=== PATIENT | male | born 1980 | race American Indian/Alaskan Native ===

== ENCOUNTER 2018-11-05 08:40 | Emergency (ER) | payer SELFPAY ==
[2018-11-05 08:44] VITALS: BP 162/98
[2018-11-05] MEDS ORDERED: PROVENTIL IH ONE (09:32)
[2018-11-05] MEDS ORDERED: DELTASONE PO ONE (09:32)
[2018-11-05] MEDS ORDERED: ATROVENT IH ONE (09:32)
[2018-11-05] MEDS ORDERED: TESSALON PERLES PO ONE (09:33)
[2018-11-05] MEDS ORDERED: ZITHROMAX PO ONE (09:33)
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
--- NOTE | 2018-11-05 10:52 | XRay Report ---
CHEST 2 VIEWS INDICATION: cough. COMPARISON: None. FINDINGS: Support devices: None. Heart: Within normal limits. Pulmonary vasculature: Normal. Lungs/pleura: Patchy opacities in the left lower lobe on both views. The rest of the lungs are clear. No pleural effusion. No pneumothorax. Additional findings: Lower thoracic dextroscoliosis. IMPRESSION: 1. Left lower lobe patchy pneumonia.. Signer Name: Timo Lwa MD Signed: 11/05/2018 10:48 AM Workstation Name: [id number]
== END 2018-11-05 11:25 | disposition home or self-care (01) ==
LOC: ED 08:40
DX: J18.1 Lobar pneumonia, unspecified organism (principal); F12.10 Cannabis abuse, uncomplicated; Z98.890 Other specified postprocedural states
CPT/HCPCS: 71046; 94644; 99283; J7512

== ENCOUNTER 2020-06-30 23:34 | Emergency (ER) | payer SELFPAY ==
[2020-07-01] MEDS ORDERED: LIDOCAINE (2%) 20 MG/1 ML VIAL 20 ML MDV INFILTRATI ONE (00:27)
[2020-07-01 00:39] LABS: Basophils # (Auto) 0.1 K/mm3 (0.0-0.1); Basophils % (Auto) 0.4 % (0.0-1.8); Eosinophils % (Auto) 0.1 % (0.0-4.3); Hematocrit 38.6 % (35.5-45.6); Hemoglobin 12.5 gm/dl (11.8-15.2); Lymphocytes # (Auto) 0.7 K/mm3 (1.2-5.4); Lymphocytes % (Auto) 4.3 % (13.4-35.0); Mean Corpuscular HGB Conc 32 % (32-34); Mean Corpuscular Volume 93 fl (84-94); Monocytes # (Auto) 1.2 K/mm3 (0.0-0.8); Monocytes % (Auto) 6.6 % (0.0-7.3); Platelet Count 248 K/mm3 (140-440); Red Blood Count 4.13 M/mm3 (3.65-5.03)
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
[2020-07-01] MEDS ORDERED: TETANUS,DIPH,PERTUSS(ACELL) VACCINE 0.5 ML SYRINGE IM ONE (00:41)
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
--- NOTE | 2020-07-01 00:51 | Cat Scan Report ---
CT facial bones wo con INDICATION: facial trauma. TECHNIQUE: All CT scans at this location are performed using the following dose modulation technique: Automated exposure control. CONTRAST: None. COMPARISON: None available. FINDINGS: Fluid is seen at the left frontal sinus, anterior ethmoids and maxillary sinuses bilaterall y. Nondisplaced fracture inferior left frontal sinus. Mildly depressed left nasal fracture. Comminuted f ractures involve the anterior simpson of the maxillary sinuses bilaterally and the posterior lateral wa ll of the left maxillary sinus. There are also fractures at the nasal septum and multiple sites at th e maxilla/hard palate. The floors of the orbits, pterygoid plates and zygomatic arch are intact. Multifocal dental disease is present. IMPRESSION: 1. Multiple facial fractures. 2. Multifocal sinus opacification. Signer Name: Sai Woodson MD Signed: 07/01/2020 12:46 AM Workstation Name: [id number]
[2020-07-01 01:03] LABS: Alanine Aminotransferase 22 units/L (7-56); Albumin 4.7 g/dL (3.9-5); BUN/Creatinine Ratio 15; Blood Urea Nitrogen 17 mg/dL (9-20); Calcium 9.1 mg/dL (8.4-10.2); Hemolysis Index 9
[2020-07-01] MEDS ORDERED: AMOXICILLIN 500 MG CAP PO ONE (01:06)
[2020-07-01 02:47] VITALS: BP 126/72
== END 2020-07-01 02:25 ==
LOC: ED 23:34
DX: S02.92XA Unspecified fracture of facial bones, initial encounter for closed fracture (principal); S01.81XA Laceration without foreign body of other part of head, initial encounter; F12.90 Cannabis use, unspecified, uncomplicated; Z79.899 Other long term (current) drug therapy; Z98.890 Other specified postprocedural states; W17.89XA Other fall from one level to another, initial encounter; Y93.89 Activity, other specified; Y92.89 Other specified places as the place of occurrence of the external cause; Y99.8 Other external cause status
CPT/HCPCS: 36415; 70450; 70486; 72125; 80053; 85025; 90715

== ENCOUNTER 2020-07-07 12:52 | Emergency (ER) | payer SELFPAY ==
[2020-07-07 13:09] VITALS: BP 163/90
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
== END 2020-07-07 13:36 | disposition home or self-care (01) ==
LOC: ED 12:52
DX: S02.92XD Unspecified fracture of facial bones, subsequent encounter for fracture with routine healing (principal); Z48.02 Encounter for removal of sutures; F17.200 Nicotine dependence, unspecified, uncomplicated; Z90.89 Acquired absence of other organs; Z79.1 Long term (current) use of non-steroidal anti-inflammatories (NSAID); Z79.2 Long term (current) use of antibiotics; Z79.899 Other long term (current) drug therapy; X58.XXXD Exposure to other specified factors, subsequent encounter
CPT/HCPCS: 99282

== ENCOUNTER 2021-06-13 17:44 | Emergency (ER) | payer SELFPAY ==
[2021-06-13 18:09] VITALS: BP 138/90
== END 2021-06-13 22:25 | disposition left against medical advice (07) ==
LOC: ED 17:44
DX: Z00.00 Encounter for general adult medical examination without abnormal findings (principal); Z53.21 Procedure and treatment not carried out due to patient leaving prior to being seen by health care provider